=== PATIENT | female | born 1970 | race Caucasian/White ===

== ENCOUNTER → 2019-06-28 | Outpatient (CLI) | payer OTHER ==
[~2019-06-28] MED LIST: ACETYL; ADDERALL 15 MG15 MG; ALPHA LIPOIC A600 MG; AMBIEN 10 MG TA10 MG; ASPIRIN81 M2; CARNI; CHROMIUM PICO400 MCG; COLACE100 MG PO; COSAMIN DS CAP1 EAC1; DESYREL50 MG; DIPHENHYDRAMINE25 M3; FOLGARD TABLET1 EAC1; GINKGO BILOBA120 MG; KRILL OIL500 MG; MELATONIN10 M1; MIRALAX255 GM; PRENATAL; RED YEAST RICE600 M1; ROYAL JELLY200 MG; TUMS E.S.750 MG; WELLBUTRIN SR150 MG PO
== END ==
LOC: M.RAD 15:17
DX: Z12.31 Encounter for screening mammogram for malignant neoplasm of breast (principal)

== ENCOUNTER → 2019-07-18 | Outpatient (CLI) | payer OTHER | LOC: M.ULTRA 12:57 | DX: N63.20 Unspecified lump in the left breast, unspecified quadrant (principal); R92.2 Inconclusive mammogram ==

== ENCOUNTER → 2020-11-03 | Outpatient (CLI) | payer OTHER | LOC: M.CT 09:00 | PROVIDERS: ATTEND Family Medicine | DX: E78.5 Hyperlipidemia, unspecified (principal) ==